=== PATIENT | female | born 1995 | race Caucasian/White ===

== ENCOUNTER 2018-02-12 00:54 | Emergency (ER) | END 2018-02-12 07:25 | disposition home or self-care (01) ==

== ENCOUNTER 2018-04-23 18:12 | Emergency (ER) | END 2018-04-23 21:19 | disposition home or self-care (01) ==

== ENCOUNTER 2018-04-30 13:22 | Day surgery (SDC) | END 2018-04-30 18:05 | disposition other institution (70) ==